=== PATIENT | female | born 1985 | race Caucasian/White ===

== ENCOUNTER 2023-07-17 16:37 | Inpatient (IN) ==
[2023-07-17 18:06] LABS: Appearance Urine Clear (Clear); Bacteria Urine Automated Negative (Negative); Bilirubin Urine Negative (Negative); Blood Urine Negative (Negative); Color Urine Yellow; Glucose Urine UA Negative (Negative); Ketones Urine Negative (Negative); Leukocyte Esterase Urine Negative (Negative); Nitrite Urine Negative (Negative); Protein Urine 2+ (Negative); RBC Urine Automated 0-4 /hpf (0-4); Specific Gravity Urine 1.014 (1.000-1.030); Urobilinogen Urine Negative (Negative); WBC Urine Automated 0 /hpf (0-5); pH Urine 6.5 (4.5-7.5)
[2023-07-17] MEDS: SODIUM CHLORIDE 0.9% 1,000 ML IV SCH (18:08)
[2023-07-17 18:28] LABS: Basophils # (auto) 0.06 K/uL (0.00-0.20); Eosinophils # (auto) 0.03 K/uL (0.00-0.50); Eosinophils % (auto) 0.5 %; Hematocrit (blood only) 38.5 % (37.0-47.0); Hemoglobin 13.4 g/dl (12.0-16.0); INR 0.9 (0.9-1.1); Immature Granulocytes # (auto) 0.01 K/uL (0.01-0.20); Immature Granulocytes % (auto) 0.2 %; Lymphocytes # (auto) 2.31 K/uL (1.20-3.40); Lymphocytes % (auto) 38.2 %; Mean Corpuscular Hemoglobin 31.6 pg (25.0-34.0); Mean Corpuscular Hgb Conc 34.8 g/dL (32.0-36.0); Mean Corpuscular Volume 90.8 fL (80.0-100.0); Mean Platelet Volume 9.6 fL (9.4-12.4); Monocytes # (auto) 0.63 K/uL (0.11-0.59); Monocytes % (auto) 10.4 %; Neutrophils # (auto) 3.01 K/uL (1.40-6.50); Neutrophils % (auto) 49.7 %; Platelet Count 411 K/uL (130-400); Prothrombin Time 10.4 Seconds (9.0-12.0); RDW Coefficient of Variation 15.5 % (11.5-14.5); RDW Standard Deviation 50.8 fL (36.4-46.3); Red Blood Count 4.24 M/uL (4.20-5.40); White Blood Count 6.05 K/ul (4.8-10.8)
[2023-07-17 18:30] LABS: Pregnancy Test, Serum Negative (Negative)
[2023-07-17] MEDS: MULTI-VITAMIN INFUSION 10 ML, THIAMINE HCL 100 MG, FOLIC ACID 1 MG in SODIUM CHLORIDE 0... IV ONE (18:37)
[2023-07-17 18:40] LABS: Albumin Globulin Ratio 1.3 (0.9-2); Albumin Level 4.5 gm/dl (3.4-5.0); BUN Creatinine Ratio 23.5 (10-20); Bilirubin,Total 0.9 mg/dl (0.2-1.0); Calcium 9.7 mg/dl (8.6-10.3); Creatinine Clr Calc Pharmacy 118.9 ml/min; Est GFR (African American) 126.8 ml/min; Est GFR (Non-African American) 109.4 ml/min; Globulin 3.4 gm/dl (2.5-4.0); Magnesium 1.7 mg/dl (1.7-2.4); Potassium 3.3 mmol/L (3.5-5.1); Total Protein 7.9 gm/dl (6.0-8.3); Troponin I High Sensitivity 5.3 pg/ml (0-14)
[2023-07-17 18:47] LABS: Amphetamines+Metham, Urine Neg (Neg); Barbiturates, Urine Neg (Neg); Benzodiazepine, Urine Neg (Neg); Cocaine, Urine Neg (Neg); MDMA (Ecstacy), Urine Neg (Neg); Marijuana, Urine Neg (Neg); Methadone, Urine Neg (Neg); Opiate, Urine Neg (Neg); Phencyclidine, Urine Neg (Neg)
[2023-07-17 18:51] LABS: Thyroid Stimulating Hormone 3.971 uIu/ml (0.300-4.500)
[2023-07-17] MEDS: diphenhydrAMINE 50 MG/ML VIAL IV STA (19:08)
[2023-07-17] MEDS: POTASSIUM CHLORIDE CRTAB 20 MEQ TABCR PO STA (19:08)
--- NOTE | 2023-07-17 19:50 | Emergency Department Note ---
Impression & Plan Alcoholic intoxication, Alcohol abuse, Hypokalemia ED Provider Note ED Provider Note NAME: MICK SINGH AGE:38 SEX: Female : 1985 ARRIVES VIA: Private vehicle INFORMANT: Patient ED PROVIDER(s): Carlotta Arrieta DO CHIEF COMPLAINT: Concern for alcohol withdrawal HPI: This is a 38-year-old female with a history of alcohol abuse who presents emergency department after being referred here by her PCP stating she needed inpatient treatment for alcohol withdrawal symptoms. Patient with a long history of alcohol abuse, has previously had outpatient rehab but was only able to stay sober for 10 days. This was in the fall 2022. Boyfriend at bedside states she drinks vodka and [employer] comfort daily. No recent trauma or injury while intoxicated. She states she did recently have a sinus issue and was started on doxycycline and believes she is having an allergic reaction as she did develop hives. She has been taking Benadryl intermittently for this as well. She denies any vomiting or diarrhea. Denies abdominal pain. She states when she begins to withdrawal she has increasing tremors followed by palpitations, sweating, and increased anxiety. No prior history of DTs or alcohol withdrawal related seizures. She states she has previously been given Ativan for withdrawal symptoms. Patient stated her last drink of alcohol was in the car ride over here. PAST MEDICAL HISTORY:See Below PAST SURGICAL HISTORY:See Below FAMILY HISTORY:See Below SOCIAL HISTORY:See Below HOME MEDICATIONS:See Below ALLERGIES:See Below VITALS:See Below PHYSICAL EXAMINATION: GENERAL: alert, well appearing, well nourished, no distress, non-toxic EYE EXAM: normal conjunctiva, PERRL and EOM's grossly intact OROPHARYNX: no exudate, no erythema, lips, buccal mucosa, and tongue normal and mucous membranes are moist NECK: supple, no nuchal rigidity, no adenopathy, non-tender LUNGS: Clear to auscultation. Normal chest wall mechanics, no w/r/r HEART: no murmurs, S1 normal and S2 normal ABDOMEN: abdomen soft, non-tender, normo-active bowel sounds, no masses, no rebound or guarding. BACK: Back is symmetrical on inspection and there is no deformity, no midline tenderness, no CVA tenderness. SKIN: no rashes, petechiae, orbruising UPPER EXTREMITIES: upper extremities are grossly normal. FROM, nml pulses b/l. LOWER EXTREMITIES: No pitting edema. FROM, nml pulses b/l. NEURO EXAM: Normal sensorium, cranial nerves II-XII grossly intact, normal speech, no facial droop,nogross weakness of arms, no gross weakness of legs. Gross sensation intact. No ataxia. Vital Signs: reviewed and remarkable Differential Diagnosis: alcohol intoxication, substance abuse, hypoglycemia, electrolyte abnormalities, dysrhythmia, dehydration, CHI, ICH, as well as others were entertained. MEDICAL DECISION MAKING: This is a 38 yo female who presents to the ER due to concern for etoh withdrawal. Patient had no obviuos symptoms of withdrawal on arrival. VS stable. Labs drawn and sent, IV established, EKG performed and interpreted at bedside, and patient placed on telemetry. She was given NSS and banana bag. She remianed stable while she sobered in a usual and expected fashion. No evidence of evolving withdrawal while she was monitored over several hours. Patient stated she was not interested in referrals to rehab but was most concerned for acute withdrawal symptoms. We discussed options for treatment and patient was in agreement with trial of librium to see if that would be able to control her symptoms that she could go home on a tapering dose and follow-up as an outpatient. Case signed out to Dr. Cuello to recheck following dose of librium to determine final disposition. ER Treatment Provided: See below Diagnostics Interpreted By Me: -ECG: Sinus tachycardia at 101, normal axis, normal intervals, no acute St/T wave changes -Cardiac Monitoring: An order was placed for continuous cardiac monitoring. The monitor shows a rate of 97 with normal sinus rhythm. -Laboratory studies: As stated above and show below. Triage Nursing Note Reviewed Prior/Outside Records Reviewed Past Med/Surg History Medical History Alcohol abuse Anxiety and depression Surgical History History of hysterectomy Family History Mother Alcohol abuse Anxiety Depression Father Alcohol abuse Anxiety Depression Brother Alcohol abuse Anxiety Depression Grandmother Breast cancer Grandfather Colorectal cancer Social History Smoking Status: Never smoker Tobacco Type: Cigarettes Hx Alcohol Use: Yes Alcohol type: beer and hard liquor Hx Substance Use: No Preferred Language: Tajik Communication Ability: Effective Mail Room Required: No Beliefs That Will Affect Care: None Current Living Situation: Significant Other Other Information That Helps Us Care for You: No Feels Safe at Home: Yes Safety Concerns: Feels Safe At This Time Allergies Allergies Allergy/AdvReac Type Severity Reaction Status Date / Time doxycycline Allergy Severe Anaphylaxis Verified 07/17/23 14:53 Home Meds Home Medications Medication Instructions Recorded Confirmed cholecalciferol (vitamin D3) 25 25 mcg PO DAILY 06/06/23 07/17/23 mcg (1,000 unit) capsule (Vitamin D3) doxepin 100 mg capsule 100 mg PO HS 07/18/23 07/18/23 doxepin 100 mg capsule mg 07/18/23 Previous Rx's Medication Instructions Recorded buspirone 10 mg tablet 10 mg PO TID 30 days #90 tabs 06/06/23 fluoxetine 20 mg capsule (Prozac) 20 mg PO TID 30 days #90 caps 06/06/23 hydroxyzine HCl 25 mg tablet 25 mg PO DAILY PRN anxiety #30 tabs 06/06/23 ondansetron 4 mg disintegrating 4 mg PO Q8H PRN nausea and 06/26/23 tablet vomiting #30 tabs albuterol sulfate 90 mcg/actuation 2 puff inhalation QID PRN 07/10/23 aerosol inhaler (ProAir HFA) shortness of breath #8.5 grams chlordiazepoxide HCl 25 mg capsule See Rx Instructions .Route 07/17/23 .COMPLEX PRN alcohol withdrawal #30 caps epinephrine 0.3 mg/0.3 mL 0.3 mg (0.3 mL) IM Q4H PRN 07/17/23 injection, auto-injector (EpiPen anaphylaxis #2 ea 2-[place]) Results & Data (ED) Vital Signs Vital Signs - 24 hr 07/17/23 18:30 07/17/23 20:13 07/17/23 22:00 Temperature 36.6 C 36.6 C Temperature Source Oral Oral Pulse Rate Pulse Rate [Apical] 102 H 98 H 90 Pulse Rate from SpO2 Sensor Respiratory Rate 19 16 20 Respiratory Effort / Characteristics Non-Labored Blood Pressure Blood Pressure [Right Arm] 118/81 125/93 142/92 H Blood Pressure Mean Blood Pressure Mean [Right Arm] 93 103 108 Pulse Oximetry 98 94 97 Oxygen Delivery Method Room Air Room Air Room Air 07/17/23 23:05 07/17/23 23:05 07/18/23 00:00 Temperature 36.9 C Temperature Source Oral Pulse Rate 92 H 84 Pulse Rate [Apical] Pulse Rate from SpO2 Sensor 94 H 87 Respiratory Rate 23 17 Respiratory Effort / Characteristics Blood Pressure 121/95 129/100 Blood Pressure [Right Arm] Blood Pressure Mean 103 109 Blood Pressure Mean [Right Arm] Pulse Oximetry 95 93 Oxygen Delivery Method Room Air Room Air Laboratory Data 07/18/23 02:45 07/18/23 02:45 Lab Results 07/17/23 07/17/23 07/17/23 Range/Units 16:51 16:58 20:22 WBC 6.05 (4.8-10.8) K/ul RBC 4.24 (4.20-5.40) M/uL Hgb 13.4 (12.0-16.0) g/dl Hct 38.5 (37.0-47.0) % MCV 90.8 (80.0-100.0) fL MCH 31.6 (25.0-34.0) pg MCHC 34.8 (32.0-36.0) g/dL RDW Std Deviation 50.8 H (36.4-46.3) fL RDW Coeff of Cuco 15.5 H (11.5-14.5) % Plt Count 411 H (130-400) K/uL MPV 9.6 (9.4-12.4) fL Immature Gran % (Auto) 0.2 % Neut % (Auto) 49.7 % Lymph % (Auto) 38.2 % Amelia % (Auto) 10.4 % Eos % (Auto) 0.5 % Baso % (Auto) 1.0 % Neut # (Auto) 3.01 (1.40-6.50) K/uL Lymph # (Auto) 2.31 (1.20-3.40) K/uL Amelia # (Auto) 0.63 H (0.11-0.59) K/uL Eos # (Auto) 0.03 (0.00-0.50) K/uL Baso # (Auto) 0.06 (0.00-0.20) K/uL Immature Gran # (Auto) 0.01 (0.01-0.20) K/uL PT 10.4 (9.0-12.0) Seconds INR 0.9 (0.9-1.1) Sodium 135 L (136-145) mmol/L Potassium 3.3 L (3.5-5.1) mmol/L Chloride 97 L (98-107) mmol/L Carbon Dioxide 20 L (21-32) mmol/L Anion Gap 18 H (3-11) BUN 16 (6-23) mg/dl Creatinine 0.68 (0.6-1.2) mg/dl Est Cr Clr Drug Dosing 118.9 ml/min Est GFR ( Amer) 126.8 ml/min Est GFR (Non-Af Amer) 109.4 ml/min BUN/Creatinine Ratio 23.5 H (10-20) Glucose 153 H (70-99(Fasting)) mg/dl Calcium 9.7 (8.6-10.3) mg/dl Magnesium 1.7 (1.7-2.4) mg/dl Total Bilirubin 0.9 (0.2-1.0) mg/dl AST 91 H (13-39) U/L ALT 60 H (7-52) U/L Alkaline Phosphatase 144 H (34-104) U/L Troponin I High Sens 5.3 (0-14) pg/ml Total Protein 7.9 (6.0-8.3) gm/dl Albumin 4.5 (3.4-5.0) gm/dl Globulin 3.4 (2.5-4.0) gm/dl Albumin/Globulin Ratio 1.3 (0.9-2) Lipase 45 (11-82) U/L TSH 3.971 (0.300-4.500) uIu/ml HCG, Qual Negative (Negative) Urine Color Yellow Urine Appearance Clear (Clear) Urine pH 6.5 (4.5-7.5) Ur Specific Frederic 1.014 (1.000-1.030) Urine Protein 2+ H (Negative) Urine Glucose (UA) Negative (Negative) Urine Ketones Negative (Negative) Urine Blood Negative (Negative) Urine Nitrite Negative (Negative) Urine Bilirubin Negative (Negative) Urine Urobilinogen Negative (Negative) Ur Leukocyte Esterase Negative (Negative) Urine WBC (Auto) 0 (0-5) /hpf Urine RBC (Auto) 0-4 (0-4) /hpf U Hyaline Cast (Auto) 1-5 (0-5) /lpf U Epithel Cells (Auto) 10-20 H (0-5) /lpf Urine Bacteria (Auto) Negative (Negative) Urine Opiates Screen Neg (Neg) Ur Methadone, Qual Neg (Neg) Urine Barbiturates Neg (Neg) Ur Phencyclidine (PCP) Neg (Neg) U Amphetamin/Meth Scrn Neg (Neg) MDMA (Ecstasy) Screen Neg (Neg) U Benzodiazepines Scrn Neg (Neg) Ur Cocaine Metabolite Neg (Neg) U Marijuana (THC) Screen Neg (Neg) Ethyl Alcohol mg/dL 218.0 H 97.0 H (<10.0) mg/dl Administered Medications Buspirone HCl (Buspirone 5 Mg Tab) 10 mg PO TID [facility] Stop: 08/17/23 08:59 Last Admin: 07/18/23 13:14 Dose: 10 mg Documented By: Admin: 07/18/23 07:23 Dose: 10 mg Documented By: RUSSELL Chlordiazepoxide HCl (Chlordiazepoxide Hcl 25 Mg Cap) 50 mg PO Q6H [facility] Stop: 07/18/23 19:22 Last Admin: 07/18/23 13:15 Dose: 50 mg Documented By: Admin: 07/18/23 07:22 Dose: 50 mg Documented By: Admin: 07/18/23 01:53 Dose: 50 mg Documented By: CAIO Doxepin HCl (Doxepin Hcl 50 Mg Capsule) 100 mg PO HS [facility] Stop: 08/17/23 02:59 Last Admin: 07/18/23 04:05 Dose: Not Given Documented By: CAIO Folic Acid (Folic Acid 1 Mg Tab) 1 mg PO QAM [facility] Stop: 08/17/23 08:59 Last Admin: 07/18/23 07:24 Dose: 1 mg Documented By: RUSSELL Lorazepam 1 mg/ Syringe 1 mls @ 2 mls/min IV UD PRN; Protocol PRN Reason: EtOH Withdrawal AWSS Score 6,7 Stop: 08/17/23 01:20 Last Admin: 07/18/23 11:54 Dose: 2 mls/min Documented By: Admin: 07/18/23 05:19 Dose: 2 mls/min Documented By: CAIO Lorazepam 2 mg/ Syringe 2 mls @ 2 mls/min IV UD PRN; Protocol PRN Reason: EtOH Withdrawal AWSS Score 8,9 Stop: 08/17/23 01:20 Last Admin: 07/18/23 15:20 Dose: 2 mls/min Documented By: MARELY Thiamine HCl 200 mg/ Sodium (Chloride) 52 mls @ 210 mls/hr IV TID [facility] Stop: 08/17/23 13:59 Last Infusion: 07/18/23 14:55 Dose: Infused Documented By: Admin: 07/18/23 14:24 Dose: 210 mls/hr Documented By: MARELY Nicotine (Nicotine 14 Mg/24 Hr Patch) 14 mg TD QAM [facility] Stop: 08/17/23 15:29 Last Admin: 07/18/23 16:37 Dose: 14 mg Documented By: MARELY Ondansetron HCl (Ondansetron Inj 2 Mg/Ml 2 Ml Vial) 4 mg IV Q6H PRN PRN Reason: Nausea And Vomiting Stop: 08/17/23 00:42 Last Admin: 07/18/23 00:58 Dose: 4 mg Documented By: NIESHA Pantoprazole Sodium (Pantoprazole 40 Mg Tab) 40 mg PO BID [facility] Stop: 08/17/23 12:59 Last Admin: 07/18/23 13:15 Dose: 40 mg Documented By: MARELY Discontinued Medications Acetaminophen (Acetaminophen 500 Mg Tab) 1,000 mg PO NOW STA Stop: 07/18/23 00:49 Last Admin: 07/18/23 00:54 Dose: 1,000 mg Documented By: NIESHA Chlordiazepoxide HCl (Chlordiazepoxide Hcl 25 Mg Cap) 50 mg PO NOW ONE Stop: 07/17/23 22:15 Last Admin: 07/17/23 22:19 Dose: 50 mg Documented By: JONATHAN Diazepam (Diazepam 5 Mg/Ml 10ml Vial) 5 mg IV Q1H PRN PRN Reason: Alcohol Withdrawal Stop: 08/16/23 17:36 Last Admin: 07/18/23 00:36 Dose: 5 mg Documented By: NIESHA Diazepam (Diazepam 2 Mg Tablet) 2 mg PO NOW ONE Stop: 07/18/23 08:04 Last Admin: 07/18/23 08:51 Dose: 2 mg Documented By: DINO Diazepam (Diazepam 2 Mg Tablet) 2 mg PO NOW ONE Stop: 07/18/23 13:00 Last Admin: 07/18/23 13:15 Dose: 2 mg Documented By: MARELY Diphenhydramine HCl (Diphenhydramine 50 Mg/Ml Vial) 25 mg IV NOW STA Stop: 07/17/23 18:44 Last Admin: 07/17/23 19:08 Dose: 25 mg Documented By: WU Fluoxetine HCl (Fluoxetine Hcl 20 Mg Cap) 20 mg PO TID [facility] Stop: 08/17/23 08:59 Last Admin: 07/18/23 13:15 Dose: 20 mg Documented By: Admin: 07/18/23 07:23 Dose: 20 mg Documented By: RUSSELL Sodium Chloride (Nss) 1,000 mls @ 250 mls/hr IV .Q4H [facility] Stop: 08/16/23 17:44 Last Infusion: 07/18/23 02:17 Dose: Infused Documented By: Admin: 07/17/23 21:51 Dose: 250 mls/hr Documented By: Infusion: 07/17/23 21:51 Dose: Infused Documented By: Admin: 07/17/23 18:08 Dose: 250 mls/hr Documented By: WU Multivitamins 10 ml/ Thiamine HCl 100 mg/ Folic Acid 1 mg/Sodium Chloride 1,011.2 mls @ 250 mls/hr IV .Q4H3M ONE Stop: 07/17/23 21:39 Last Infusion: 07/17/23 22:46 Dose: Infused Documented By: Admin: 07/17/23 18:37 Dose: 250 mls/hr Documented By: WU Lorazepam 3 mg/ Syringe 3 mls @ 2 mls/min IV ONCE PRN; Protocol PRN Reason: EtOH Withdrawal AWSS Score 10+ Last Admin: 07/18/23 07:35 Dose: 2 mls/min Documented By: RUSSELL Magnesium Sulfate/Dextrose (Magnesium Sulfate / D5w) 1 gm in 100 mls @ 50 mls/hr IV ONE ONE Stop: 07/18/23 10:06 Last Infusion: 07/18/23 11:15 Dose: Infused Documented By: Admin: 07/18/23 08:51 Dose: 50 mls/hr Documented By: DINO Magnesium Sulfate/Dextrose (Magnesium Sulfate / D5w) 1 gm in 100 mls @ 50 mls/hr IV Q2H [facility] Stop: 07/18/23 15:14 Last Infusion: 07/18/23 15:55 Dose: Infused Documented By: Admin: 07/18/23 13:47 Dose: 50 mls/hr Documented By: Infusion: 07/18/23 13:47 Dose: Infused Documented By: Admin: 07/18/23 11:46 Dose: 50 mls/hr Documented By: MARELY Ibuprofen (Ibuprofen 200 Mg Tab) 400 mg PO NOW STA Stop: 07/17/23 22:37 Last Admin: 07/17/23 22:39 Dose: 400 mg Documented By: JONATHAN Ibuprofen (Ibuprofen 200 Mg Tab) 400 mg PO NOW STA Stop: 07/18/23 08:04 Last Admin: 07/18/23 08:50 Dose: 400 mg Documented By: DINO Lorazepam (Lorazepam 1 Mg/1 Ml Syr Ed Inj Use) Confirm Administered Dose 3 mg .ROUTE .STK-MED ONE Stop: 07/18/23 07:35 Last Admin: 07/18/23 09:31 Dose: Not Given Documented By: RUSSELL Lorazepam (Lorazepam 1 Mg/1 Ml Syr Ed Inj Use) Confirm Administered Dose 1 mg .ROUTE .STK-MED ONE Stop: 07/18/23 11:54 Last Admin: 07/18/23 11:54 Dose: 1 mg Documented By: MARELY Lorazepam (Lorazepam 1 Mg/1 Ml Syr Ed Inj Use) Confirm Administered Dose 2 mg .ROUTE .STK-MED ONE Stop: 07/18/23 15:19 Last Admin: 07/18/23 15:20 Dose: 2 mg Documented By: MARELY Potassium Chloride (Potassium Chloride Crtab 20 Meq Tabcr) 40 meq PO NOW STA Stop: 07/17/23 18:47 Last Admin: 07/17/23 19:08 Dose: 40 meq Documented By: WU Thiamine HCl (Thiamine Hcl 100 Mg Tab) 100 mg PO QAM [facility] Stop: 08/17/23 08:59 Last Admin: 07/18/23 07:24 Dose: 100 mg Documented By: RUSSELL Discharge Plan Visit Data Chief Complaint: Detox Request Stated Complaint: DETOX/ALCOHOL ED Provider: Judson Cuello Discharge Problem: Alcoholic intoxication, Alcohol abuse, Hypokalemia Patient Disposition: Admitted As Inpatient Condition: Good Discharge Instructions Interventions: ED Discharge Assessment Last Done: 07/18/23 01:21
[2023-07-17] MEDS: chlordiazePOXIDE HCl 25 MG CAP PO ONE (22:19)
[2023-07-17] MEDS: IBUPROFEN 200 MG TAB PO STA (22:39)
--- NOTE | 2023-07-17 23:59 | Emergency Department Note ---
ED Visit Note Patient was signed out to me at change of shift by Dr. Arrieta, pending reevaluation for final disposition. Repeat alcohol level is down trended to 97.0, on my reassessment the patient's vital signs are stable however she states she feels very "sweaty" and feels very anxious and does not feel comfortable with discharge home. Patient was given Valium as well as Librium here in the ED. She does not feel comfortable with discharge home for Librium taper as she states that her symptoms "always get worse in the morning". Given this, I did discuss the patient's presentation with the on-call hospitalist, Dr. Winter, he did accept the patient for inpatient care for alcohol withdrawal symptoms. Patient was in agreement to this plan and she was placed for medical admission in stable condition. Judson Cuello DO .
--- NOTE | 2023-07-18 00:12 | History & Physical Report ---
Date of Service July 18, 2023 Assessment & Plan (1) Alcohol abuse: Plan: 38yo female with history of EtOH abuse with prior withdrawal symptoms, possible withdrawal seizure in the past presenting with concern for EtOH withdrawal. Patient reports drinking 1-2L of liquor daily. Last drink was prior to ER arrival 07/17/23 afternoon. Patient has been given a banana bag and potassium has been repleted -Admit to PCU -Monitor for signs of withdrawal -Ativan PRN per AWSS -Librium taper -Thiamine 100mg po daily and Folic Acid 1mg po daily -Psychiatry consultation appreciated. Patient is interested in Vivitrol injection to help her quit drinking. -Repeat CBC, BMP and LFTs in AM (2) Anxiety and depression: Plan: Chronic -Continue Buspar 10mg po TID -Continue Fluoxetine 20mg po TID -Will hold PRN Hydroxyzine F/E/N - Saline lock. Repeat chemistry in AM. Regular diet/Safe tray as tolerated Ppx - Low risk for DVT Code - Full per patient discussion at time of admission Dispo - Admit to PCU History of Present Illness Chief Complaint: Alcohol withdrawal Primary Care Provider: Dalila Angeles MD Catherine Hinkle is a 38yo female with history of EtOH abuse and anxiety presenting from home with concern for EtOH withdrawal. Patient was seen by her PCP earlier today with concern for an allergic reaction - urticarial rash and angioedema which improved with PO Benadryl. She voiced concern about EtOH withdrawal and would like to be admitted for medical detox. Patient drinks 1-2 L of liquor daily - Vodka and Southern Comfort. She was experiencing some mild withdrawal symptoms at her PCP visit and drank some EtOH on the way to the ER. Patient was in rehab in the past in February 2023. She had some withdrawal symptoms and possibly a seizure. Presently she feels sweaty and chilled. Otherwise, no complaints. In the ER she is afebrile, HD stable, NAD ER Course: Ibuprofen 400mg Librium 50mg NSS x 2L KCl 40mEq Benadryl 25mg IV Banana bag Allergies Allergy/AdvReac Type Severity Reaction Status Date / Time doxycycline Allergy Severe Anaphylaxis Verified 07/17/23 14:53 Home Medications Medication Instructions Recorded Confirmed Type buspirone 10 mg tablet 10 mg PO TID 30 days #90 tabs 06/06/23 07/17/23 Rx cholecalciferol (vitamin D3) 25 25 mcg PO DAILY 06/06/23 07/17/23 History mcg (1,000 unit) capsule (Vitamin D3) fluoxetine 20 mg capsule (Prozac) 20 mg PO TID 30 days #90 caps 06/06/23 07/17/23 Rx hydroxyzine HCl 25 mg tablet 25 mg PO DAILY PRN anxiety #30 tabs 06/06/2308/05 Rx ondansetron 4 mg disintegrating 4 mg PO Q8H PRN nausea and 06/26/23 07/17/23 Rx tablet vomiting #30 tabs albuterol sulfate 90 mcg/actuation 2 puff inhalation QID PRN 07/10/23 07/17/23 Rx aerosol inhaler (ProAir HFA) shortness of breath #8.5 grams chlordiazepoxide HCl 25 mg capsule See Rx Instructions .Route 07/17/23 Rx .COMPLEX PRN alcohol withdrawal #30 caps epinephrine 0.3 mg/0.3 mL 0.3 mg (0.3 mL) IM Q4H PRN 07/17/23 07/17/23 Rx injection, auto-injector (EpiPen anaphylaxis #2 ea 2-[place]) Past Med/Surg History Medical History (Updated 07/18/23 @ 00:24 by Ssisy Winter DO) Alcohol abuse Anxiety and depression Surgical History (Updated 07/18/23 @ 00:24 by Sissy Winter DO) History of hysterectomy Family History Mother Alcohol abuse Anxiety Depression Father Alcohol abuse Anxiety Depression Brother Alcohol abuse Anxiety Depression Grandmother Breast cancer Grandfather Colorectal cancer Social History Smoking Status: Unknown if ever smoked Tobacco Type: Cigarettes Preferred Language: German Feels Safe at Home: Yes Review of Systems Review of Systems: All systems reviewed & are unremarkable except as noted in HPI & below Physical Exam Physical Exam: General: patient resting comfortably, NAD, non-toxic in appearance, AA&O x 4 Skin: warm, dry, intact, no rashes or lesions HEENT: NC/AT, PERRL, EOMI, anicteric sclera, conjunctiva without injection, external ear normal to inspection and nontender, nares patent, moist mucus membranes, dentition intact, no oropharyngeal lesions, neck supple, trachea midline, no LAD, no thyromegaly, no JVD Heart: +S1/S2, regular, no m/r/g Lungs: equal air entry bilaterally, no rales/rhonchi/wheezes Abd: +BS, soft, NT/ND, no masses/organomegaly/ascites Ext: warm, 2+ pulses in UE/LE bilaterally, no clubbing/cyanosis or edema Neuro: nonfocal, patient AA&O x 4, speech intact, no facial droop, moving all extremities on command with equal strength 5/5 Results & Data Results & Data Vital Signs (Past 12 Hours) Vital Signs Temp Pulse Pulse Resp BP BP Pulse Ox 07/17/23 23:05 92 H 23 121/95 95 07/17/23 23:05 36.9 C 07/17/23 22:00 36.6 C 90 20 142/92 H 97 07/17/23 20:13 36.6 C 98 H 16 125/93 94 07/17/23 18:30 102 H 19 118/81 98 07/17/23 17:14 104 H 07/17/23 17:00 106 H 19 154/119 H 98 07/17/23 16:39 36.8 C 117 H 19 134/98 93 O2 Del Method 07/17/23 23:05 Room Air 07/17/23 23:05 07/17/23 22:00 Room Air 07/17/23 20:13 Room Air 07/17/23 18:30 Room Air 07/17/23 17:14 07/17/23 17:00 Room Air 07/17/23 16:39 Room Air Laboratory Results Laboratory Results WBC 6.05 K/ul (4.8-10.8) 07/17/23 16:58 RBC 4.24 M/uL (4.20-5.40) 07/17/23 16:58 Hgb 13.4 g/dl (12.0-16.0) 07/17/23 16:58 Hct 38.5 % (37.0-47.0) 07/17/23 16:58 MCV 90.8 fL (80.0-100.0) 07/17/23 16:58 MCH 31.6 pg (25.0-34.0) 07/17/23 16:58 MCHC 34.8 g/dL (32.0-36.0) 07/17/23 16:58 RDW Std Deviation 50.8 fL (36.4-46.3) H 07/17/23 16:58 RDW Coeff of Cuco 15.5 % (11.5-14.5) H 07/17/23 16:58 Plt Count 411 K/uL (130-400) H 07/17/23 16:58 MPV 9.6 fL (9.4-12.4) 07/17/23 16:58 Immature Gran % (Auto) 0.2 % 07/17/23 16:58 Neut % (Auto) 49.7 % 07/17/23 16:58 Lymph % (Auto) 38.2 % 07/17/23 16:58 [place] % (Auto) 10.4 % 07/17/23 16:58 Eos % (Auto) 0.5 % 07/17/23 16:58 Baso % (Auto) 1.0 % 07/17/23 16:58 Neut # (Auto) 3.01 K/uL (1.40-6.50) 07/17/23 16:58 Lymph # (Auto) 2.31 K/uL (1.20-3.40) 07/17/23 16:58 [place] # (Auto) 0.63 K/uL (0.11-0.59) H 07/17/23 16:58 Eos # (Auto) 0.03 K/uL (0.00-0.50) 07/17/23 16:58 Baso # (Auto) 0.06 K/uL (0.00-0.20) 07/17/23 16:58 Immature Gran # (Auto) 0.01 K/uL (0.01-0.20) 07/17/23 16:58 PT 10.4 Seconds (9.0-12.0) 07/17/23 16:58 INR 0.9 (0.9-1.1) 07/17/23 16:58 Sodium 135 mmol/L (136-145) L 07/17/23 16:58 Potassium 3.3 mmol/L (3.5-5.1) L 07/17/23 16:58 Chloride 97 mmol/L (98-107) L 07/17/23 16:58 Carbon Dioxide 20 mmol/L (21-32) L 07/17/23 16:58 Anion Gap 18 (3-11) H 07/17/23 16:58 BUN 16 mg/dl (6-23) 07/17/23 16:58 Creatinine 0.68 mg/dl (0.6-1.2) 07/17/23 16:58 Est Cr Clr Drug Dosing 118.9 ml/min 07/17/23 16:58 Est GFR ( Amer) 126.8 ml/min 07/17/23 16:58 Est GFR (Non-Af Amer) 109.4 ml/min 07/17/23 16:58 BUN/Creatinine Ratio 23.5 (10-20) H 07/17/23 16:58 Glucose 153 mg/dl (70-99(Fasting)) H 07/17/23 16:58 Calcium 9.7 mg/dl (8.6-10.3) 07/17/23 16:58 Magnesium 1.7 mg/dl (1.7-2.4) 07/17/23 16:58 Total Bilirubin 0.9 mg/dl (0.2-1.0) 07/17/23 16:58 AST 91 U/L (13-39) H 07/17/23 16:58 ALT 60 U/L (7-52) H 07/17/23 16:58 Alkaline Phosphatase 144 U/L (34-104) H 07/17/23 16:58 Troponin I High Sens 5.3 pg/ml (0-14) 07/17/23 16:58 Total Protein 7.9 gm/dl (6.0-8.3) 07/17/23 16:58 Albumin 4.5 gm/dl (3.4-5.0) 07/17/23 16:58 Globulin 3.4 gm/dl (2.5-4.0) 07/17/23 16:58 Albumin/Globulin Ratio 1.3 (0.9-2) 07/17/23 16:58 Lipase 45 U/L (11-82) 07/17/23 16:58 TSH 3.971 uIu/ml (0.300-4.500) 07/17/23 16:58 HCG, Qual Negative (Negative) 07/17/23 16:58 Urine Color Yellow 07/17/23 16:51 Urine Appearance Clear (Clear) 07/17/23 16:51 Urine pH 6.5 (4.5-7.5) 07/17/23 16:51 Ur Specific [place] 1.014 (1.000-1.030) 07/17/23 16:51 Urine Protein 2+ (Negative) H 07/17/23 16:51 Urine Glucose (UA) Negative (Negative) 07/17/23 16:51 Urine Ketones Negative (Negative) 07/17/23 16:51 Urine Blood Negative (Negative) 07/17/23 16:51 Urine Nitrite Negative (Negative) 07/17/23 16:51 Urine Bilirubin Negative (Negative) 07/17/23 16:51 Urine Urobilinogen Negative (Negative) 07/17/23 16:51 Ur Leukocyte Esterase Negative (Negative) 07/17/23 16:51 Urine WBC (Auto) 0 /hpf (0-5) 07/17/23 16:51 Urine RBC (Auto) 0-4 /hpf (0-4) 07/17/23 16:51 U Hyaline Cast (Auto) 1-5 /lpf (0-5) 07/17/23 16:51 U Epithel Cells (Auto) 10-20 /lpf (0-5) H 07/17/23 16:51 Urine Bacteria (Auto) Negative (Negative) 07/17/23 16:51 Urine Opiates Screen Neg (Neg) 07/17/23 16:51 Ur Methadone, Qual Neg (Neg) 07/17/23 16:51 Urine Barbiturates Neg (Neg) 07/17/23 16:51 Ur Phencyclidine (PCP) Neg (Neg) 07/17/23 16:51 U Amphetamin/Meth Scrn Neg (Neg) 07/17/23 16:51 MDMA (Ecstasy) Screen Neg (Neg) 07/17/23 16:51 U Benzodiazepines Scrn Neg (Neg) 07/17/23 16:51 Ur Cocaine Metabolite Neg (Neg) 07/17/23 16:51 U Marijuana (THC) Screen Neg (Neg) 07/17/23 16:51 Ethyl Alcohol mg/dL 97.0 mg/dl (<10.0) H 07/17/23 20:22 PG Care Time/CCT Total # of Minutes Spent Total Time Spent with Patient: Total time spent is greater than 50% in coordination of care (as documented) at patient's floor/unit and/or counseling patient: Coding Level of Care Code 92017 INT INP/OBS CARE 3/75MIN Diagnoses Alcohol abuse F10.10 Anxiety and depression F41.9; F32.A
[2023-07-18] MEDS: diazePAM 5 MG/ML 10ML VIAL IV PRN (00:36)
[2023-07-18] MEDS: ACETAMINOPHEN 500 MG TAB PO STA (00:54)
[2023-07-18] MEDS: ONDANSETRON INJ 2 MG/ML 2 ML VIAL IV PRN (00:58)
[2023-07-18] MEDS ORDERED: Ativan IV Alcohol Withdrawal--Active Protocol IV PRN (01:21)
[2023-07-18] MEDS ORDERED: chlordiazePOXIDE ALCOHOL WITHDRAWL 50MG PO STA (01:21)
[2023-07-18] MEDS ORDERED: ONDANSETRON INJ 2 MG/ML 2 ML VIAL IV PRN (01:21)
[2023-07-18] MEDS ORDERED: hydrOXYzine HCl 25 MG TAB PO PRN (01:53)
[2023-07-18] MEDS: chlordiazePOXIDE HCl 25 MG CAP PO SCH (01:53)
[2023-07-18 03:39] LABS: Albumin Globulin Ratio 1.3 (0.9-2); Albumin Level 3.5 gm/dl (3.4-5.0); BUN Creatinine Ratio 18.2 (10-20); Bilirubin Direct 0.2 mg/dl (0-0.2); Calcium 7.7 mg/dl (8.6-10.3); Creatinine Clr Calc Pharmacy 122.5 ml/min; Est GFR (African American) 128.1 ml/min; Est GFR (Non-African American) 110.5 ml/min; Globulin 2.6 gm/dl (2.5-4.0); Potassium 3.8 mmol/L (3.5-5.1); Total Protein 6.1 gm/dl (6.0-8.3)
[2023-07-18] MEDS: DOXEPIN HCL 50 MG CAPSULE PO SCH (04:05)
[2023-07-18 04:14] LABS: Basophils # (auto) 0.07 K/uL (0.00-0.20); Basophils % (auto) 1.5 %; Eosinophils # (auto) 0.05 K/uL (0.00-0.50); Eosinophils % (auto) 1.1 %; Hematocrit (blood only) 33.5 % (37.0-47.0); Immature Granulocytes # (auto) 0.01 K/uL (0.01-0.20); Immature Granulocytes % (auto) 0.2 %; Lymphocytes # (auto) 2.34 K/uL (1.20-3.40); Lymphocytes % (auto) 50.6 %; Mean Corpuscular Hemoglobin 31.7 pg (25.0-34.0); Mean Corpuscular Hgb Conc 32.8 g/dL (32.0-36.0); Mean Platelet Volume 9.4 fL (9.4-12.4); Monocytes # (auto) 0.52 K/uL (0.11-0.59); Monocytes % (auto) 11.3 %; Neutrophils # (auto) 1.63 K/uL (1.40-6.50); Neutrophils % (auto) 35.3 %; Platelet Count 263 K/uL (130-400); RDW Coefficient of Variation 15.6 % (11.5-14.5); RDW Standard Deviation 54.7 fL (36.4-46.3); Red Blood Count 3.47 M/uL (4.20-5.40); White Blood Count 4.62 K/ul (4.8-10.8)
[2023-07-18] MEDS: LORazepam 1 MG in SYRINGE 0.5 ML IV PRN (05:19)
[2023-07-18] MEDS: FLUoxetine HCL 20 MG CAP PO SCH (07:23)
[2023-07-18] MEDS: busPIRone 5 MG TAB PO SCH (07:23)
[2023-07-18] MEDS: FOLIC ACID 1 MG TAB PO SCH (07:24)
[2023-07-18] MEDS: THIAMINE HCL 100 MG TAB PO SCH (07:24)
[2023-07-18] MEDS: LORazepam 3 MG in SYRINGE 1.5 ML IV PRN (07:35)
[2023-07-18] MEDS: IBUPROFEN 200 MG TAB PO STA (08:50)
[2023-07-18] MEDS: MAGNESIUM SULFATE / D5W 1 GM/100 ML BAG IV ONE (08:51)
[2023-07-18] MEDS: diazePAM 2 MG TABLET PO ONE ×2 (08:51→13:15)
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
[2023-07-18 09:16] LABS: Iron 326 mcg/dl (35-150); Magnesium 1.5 mg/dl (1.7-2.4); Unsaturated Iron Binding Cap < 55 mcg/dl (155-355)
[2023-07-18] MEDS: LORazepam 1 MG/1 ML SYR ED Inj Use ONE ×3 (09:31→15:20)
[2023-07-18] MEDS: MAGNESIUM SULFATE / D5W 1 GM/100 ML BAG IV SCH (11:46)
[2023-07-18] MEDS: PANTOprazole 40 MG TAB PO SCH (13:15)
[2023-07-18] MEDS: THIAMINE HCL 200 MG in SODIUM CHLORIDE 0.9% 50 ML IV SCH (14:24)
[2023-07-18] MEDS ORDERED: Ativan PO Alcohol Withdrawal--Active Protocol PO PRN (15:09)
[2023-07-18] MEDS: LORazepam 2 MG in SYRINGE 1 ML IV PRN (15:20)
[2023-07-18] MEDS: NICOTINE 14 MG/24 HR PATCH TD SCH (16:37)
--- NOTE | 2023-07-18 16:44 | Psychiatric Consultation ---
Date of Consultation July 18, 2023 Impression / Recommendations Impression Diagnostically consistent with alcohol use disorder as well as unspecified depression and anxiety likely a combination of substance-induced as well as YUSEF. Acute risk of self-harm is low given denial of SI and future-oriented. Chronic risk of self-harm and harm to others is slightly increased due to substance use with substance use treatment being the most significant modifiable risk factor to reduce acute and chronic risk. Recommendation is for dual diagnosis or residential substance use treatment. They are not interested in residential treatment at this time but are agreeable to outpatient services to help with substance use and medication assisted treatment. Liver enzymes reviewed and AST still slightly elevated, would wait for this to come down a bit more before restarting po naltrexone. Overall, I spent a total of 60 minutes with this case including review of chart records, review of labwork, direct evaluation of the patient at bedside, counseling the patient, discussion of the patient with the hospitalist provider, discussion with the psychiatric liason during clinical rounds and documentation in the electronic health record. (1) Alcohol use disorder, severe, dependence: (2) Anxiety and depression: (3) Alcohol-induced anxiety disorder: Plan -Psychiatric liason will provide resources on local mental health services and substance use services and attempt to set them up with outpatient services- discussed [facility] and local clinics that offer Vivitrol injections should she tolerate po naltrexone and LFTs improve -Patient is not an imminent danger to self or others and does not meet criteria for involuntary psychiatric commitment -Continue AWSS as well as thiamine and folic acid -Consider starting naltrexone 50mg qd for alcohol use disorder once AST decreases to <78; option in future to transition to Vivitrol -Adjusted fluoxetine dosing to match her report of home dosing of 60mg daily rather than 20mg TID. Should be monitored on an ongoing basis by outpatient psychiatric provider at [facility] given that she is also prescribed doxepin which places her at increased risk for serotonin syndrome. Would advise attempting to discontinue doxepin in the future -Gabpentin 100mg TID prn could be trialed after she is outside acute withdrawal period as off-label for alcohol use and anxiety and titrated in outpatient set ting as needed Psych History Identifying Data 38 yo woman with history of unspecified anxiety, depression, alcohol use disor ansley admitted medically for complicated alcohol withdrawal. Psychiatry consulted for recommendations regarding her alcohol use/dual diagnosis treatment options. Chief Complaint "Yeah I think I need something I don't have the option of not taking". History of Present Illness Catherine had expressed a strong preference for Vivitrol injections as a potential intervention for her significant alcohol use. On meeting with her she describes her current/most recent alcohol use as a daily consumption of at least one bottle of hard liquor. Despite a history of treatment for alcohol use, including a one-month rehabilitation stay at [facility] in February, she has faced challenges in maintaining sobriety. She attributes relapses to an initial belief in her ability to moderate alcohol intake, which invariably leads to a "big spiral." She achieved her longest period of sobriety, lasting a few months p ost-rehab, by focusing on other activities and having a temporary aversion to alcohol "I hated alcohol". However, after relapsing, her alcohol use has increased and recently resulted in adverse outcomes, such as a DUI in May.She feels anxiety and depression certainly contribute to her reasons for using alcohol. Currently employed as a vehicle maintenance supervisor at [employer], the patient resides with her boyfr iend and remains in contact with her two children, ages 14 and 21. She reports having limited support, with her boyfriend and children being the primary sources of support in her life. She has a history of depression and anxiety, which she believes plays a role in her alcohol use. She is presently on psychiatric medications, including Prozac, taken as 60mg in the morning, as well as BuSpar, Doxepin and Hydroxyzine. Notes she is not always consistent with her medications but always takes her Prozac. The patient's family history includes substance use disorders in both parents. She recently saw a provider at [facility] 2 weeks ago for her first appointment and has monthly counseling sessions with Susan Cantu. She has expressed a desire to increase the frequency of counseling sessions to weekly and recognizes that Alcoholics Anonymous (AA) could be helpful. The patient has previously been prescribed naltrexone, which was escalated to a daily dose of 50 milligrams but did not prevent her from drinking. Due to the limited success with naltrexone, the patient is now seeking a more enforceable treatment option, such as Vivitrol injections. She has no history of suicide attempts or psychiatric h ospitalizations. Allergies Allergy/AdvReac Type Severity Reaction Status Date / Time doxycycline Allergy Severe Anaphylaxis Verified 07/17/23 14:53 Home Medications Medication Instructions Recorded Confirmed Type buspirone 10 mg tablet 10 mg PO TID 30 days #90 tabs 06/06/23 07/17/23 Rx cholecalciferol (vitamin D3) 25 25 mcg PO DAILY 06/06/23 07/17/23 History mcg (1,000 unit) capsule (Vitamin D3) fluoxetine 20 mg capsule (Prozac) 20 mg PO TID 30 days #90 caps 06/06/23 07/17/23 Rx hydroxyzine HCl 25 mg tablet 25 mg PO DAILY PRN anxiety #30 tabs 06/06/23 07/17/23 Rx ondansetron 4 mg disintegrating 4 mg PO Q8H PRN nausea and 06/26/23 07/17/23 Rx tablet vomiting #30 tabs albuterol sulfate 90 mcg/actuation 2 puff inhalation QID PRN 07/10/23 07/17/23 Rx aerosol inhaler (ProAir HFA) shortness of breath #8.5 grams chlordiazepoxide HCl 25 mg capsule See Rx Instructions .Route 07/17/23 Rx .COMPLEX PRN alcohol withdrawal #30 caps epinephrine 0.3 mg/0.3 mL 0.3 mg (0.3 mL) IM Q4H PRN 07/17/23 07/17/23 Rx injection, auto-injector (EpiPen anaphylaxis #2 ea 2-[place]) doxepin 100 mg capsule 100 mg PO HS 07/18/23 07/18/23 History doxepin 100 mg capsule mg 07/18/23 History Patient History Medical History Alcohol abuse Anxiety and depression Surgical History History of hysterectomy Family History Mother Alcohol abuse Anxiety Depression Father Alcohol abuse Anxiety Depression Brother Alcohol abuse Anxiety Depression Grandmother Breast cancer Grandfather Colorectal cancer Social History Smoking Status: Never smoker Tobacco Type: Cigarettes Hx Alcohol Use: Yes Alcohol type: beer and hard liquor Hx Substance Use: No Preferred Language: Northern Irish Communication Ability: Effective Hadoop Engineer Required: No Beliefs That Will Affect Care: None Current Living Situation: Significant Other Other Information That Helps Us Care for You: No Feels Safe at Home: Yes Safety Concerns: Feels Safe At This Time Physical Exam Vital Signs (Past 24 Hours): Last Vital Signs Temp 36.7 C 07/18/23 07:28 Pulse 81 07/18/23 16:00 Resp 24 07/18/23 16:00 BP 117/82 07/18/23 16:00 Pulse Ox 93 07/18/23 16:00 O2 Del Method Room Air 07/18/23 16:00 Results & Data (PSY) Medications Administered Buspirone HCl (Buspirone 5 Mg Tab) 10 mg PO TID [facility] Stop: 08/17/23 08:59 Last Admin: 07/18/23 13:14 Dose: 10 mg Documented By: Admin: 07/18/23 07:23 Dose: 10 mg Documented By: RUSSELL Chlordiazepoxide HCl (Chlordiazepoxide Hcl 25 Mg Cap) 50 mg PO Q6H [facility] Stop: 07/18/23 19:22 Last Admin: 07/18/23 13:15 Dose: 50 mg Documented By: Admin: 07/18/23 07:22 Dose: 50 mg Documented By: Admin: 07/18/23 01:53 Dose: 50 mg Documented By: CAIO Doxepin HCl (Doxepin Hcl 50 Mg Capsule) 100 mg PO HS [facility] Stop: 08/17/23 02:59 Last Admin: 07/18/23 04:05 Dose: Not Given Documented By: CAIO Fluoxetine HCl (Fluoxetine Hcl 20 Mg Cap) 20 mg PO TID [facility] Stop: 08/17/23 08:59 Last Admin: 07/18/23 13:15 Dose: 20 mg Documented By: Admin: 07/18/23 07:23 Dose: 20 mg Documented By: RUSSELL Folic Acid ([facility] Acid 1 Mg Tab) [facility] Stop: 08/17/23 08:59 Last Admin: 07/18/23 07:24 Dose: 1 mg Documented By: RUSSELL Lorazepam 1 mg/ Syringe 1 mls @ 2 mls/min IV UD PRN; Protocol PRN Reason: EtOH Withdrawal AWSS Score 6,7 Stop: 08/17/23 01:20 Last Admin: 07/18/23 11:54 Dose: 2 mls/min Documented By: Admin: 07/18/23 05:19 Dose: 2 mls/min Documented By: CAIO Lorazepam 2 mg/ Syringe 2 mls @ 2 mls/min IV UD PRN; Protocol PRN Reason: EtOH Withdrawal AWSS Score 8,9 Stop: 08/17/23 01:20 Last Admin: 07/18/23 15:20 Dose: 2 mls/min Documented By: MARELY Thiamine HCl 200 mg/ Sodium (Chloride) 52 mls @ 210 mls/hr IV TID [facility] Stop: 08/17/23 13:59 Last Infusion: 07/18/23 14:55 Dose: Infused Documented By: Admin: 07/18/23 14:24 Dose: 210 mls/hr Documented By: MARELY Ondansetron HCl (Ondansetron Inj 2 Mg/Ml 2 Ml Vial) 4 mg IV Q6H PRN PRN Reason: Nausea And Vomiting Stop: 08/17/23 00:42 Last Admin: 07/18/23 00:58 Dose: 4 mg Documented By: NIESHA Pantoprazole Sodium (Pantoprazole 40 Mg Tab) 40 mg PO BID [facility] Stop: 08/17/23 12:59 Last Admin: 07/18/23 13:15 Dose: 40 mg Documented By: MARELY Coding Level of Care Code 09484 IN/OBS CONSULT LVL 4,60M Diagnoses Alcohol use disorder, severe, dependence F10.20 Anxiety and depression F41.9; F32.A Alcohol-induced anxiety disorder F10.980
[2023-07-18] MEDS ORDERED: DOXEPIN HCL 50 MG CAPSULE PO SCH (21:00)
[2023-07-18] MEDS: diazePAM 2 MG TABLET PO PRN (22:08)
[2023-07-18] MEDS: METOCLOPRAMIDE HCL INJ 5 MG/ML 2 ML VIAL IV STA (23:20)
[2023-07-19] MEDS: chlordiazePOXIDE HCl 25 MG CAP PO SCH (02:28)
[2023-07-19 06:31] LABS: Basophils # (auto) 0.07 K/uL (0.00-0.20); Basophils % (auto) 1.5 %; Eosinophils # (auto) 0.13 K/uL (0.00-0.50); Eosinophils % (auto) 2.8 %; Hematocrit (blood only) 33.9 % (37.0-47.0); Hemoglobin 11.6 g/dl (12.0-16.0); Immature Granulocytes # (auto) 0.01 K/uL (0.01-0.20); Immature Granulocytes % (auto) 0.2 %; Lymphocytes # (auto) 1.71 K/uL (1.20-3.40); Lymphocytes % (auto) 37.1 %; Mean Corpuscular Hgb Conc 34.2 g/dL (32.0-36.0); Mean Corpuscular Volume 93.6 fL (80.0-100.0); Mean Platelet Volume 9.9 fL (9.4-12.4); Monocytes # (auto) 0.45 K/uL (0.11-0.59); Monocytes % (auto) 9.8 %; Neutrophils # (auto) 2.24 K/uL (1.40-6.50); Neutrophils % (auto) 48.6 %; Platelet Count 250 K/uL (130-400); RDW Coefficient of Variation 14.8 % (11.5-14.5); RDW Standard Deviation 51.5 fL (36.4-46.3); Red Blood Count 3.62 M/uL (4.20-5.40); White Blood Count 4.61 K/ul (4.8-10.8)
[2023-07-19 06:50] LABS: Albumin Level 3.7 gm/dl (3.4-5.0); Bilirubin Direct 0.1 mg/dl (0-0.2); Bilirubin,Total 0.7 mg/dl (0.2-1.0); Calcium 8.4 mg/dl (8.6-10.3); Creatinine Clr Calc Pharmacy 134.8 ml/min; Est GFR (African American) 132.1 ml/min; Magnesium 1.9 mg/dl (1.7-2.4); Potassium 3.8 mmol/L (3.5-5.1); Total Protein 6.4 gm/dl (6.0-8.3)
--- NOTE | 2023-07-19 07:14 | Electrocardiogram Report ---
Test Reason : Blood Pressure : / mmHG Vent. Rate : 101 BPM Atrial Rate : 101 BPM P-R Int : 122 ms QRS Dur : 088 ms QT Int : 400 ms P-R-T Axes : 048 069 064 degrees QTc Int : 518 ms Sinus tachycardia Otherwise normal ECG When compared with ECG of 07-MAY-2023 13:10, QT has lengthened Confirmed by Talat Davidson ([id number]) on 07/19/2023 7:13:45 AM Referred By: REFERRED SELF Confirmed By:Talat Davidson
[2023-07-19] MEDS: FLUoxetine HCL 20 MG CAP PO SCH (07:42)
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
--- NOTE | 2023-07-19 10:17 | Gastrointestinal Consultation ---
Date of Consultation July 19, 2023 Assessment & Plan (1) Vomiting: She has a lot of reasons to be vomiting with alcohol abuse being number one. She could well be vomiting from alcoholic gastritis or even from withdrawal from alcohol. She admittedly takes a lot of NSAIDs so she could have NSAID induced gastritis or ulcer disease. She may have had some bleeding in the past but by her history to me she is not actively bleeding and her hemoglobin is stable. For now I would just treat for ulcer disease as you are doing and observe. Okay with me to advance diet as tolerated. History of Present Illness Reason for Consultation: vomiting Attending Physician: Danny Gomez MD History of Present Illness 38 year old female admitted for detox who has been drinking one fifth per day or so. I am asked to see her for vomiting. She says she usually vomits when she withdraws from alcohol. She admittedly takes 3 aleve per day for headaches and has been recently. She tells me her stools were black yesterday but were normal today (told Mandy Milton they were dark today). She denies abdominal pain or heartburn. She says she feels fine now. Her h/h are stable. Allergies Allergy/AdvReac Type Severity Reaction Status Date / Time doxycycline Allergy Severe Anaphylaxis Verified 07/17/23 14:53 Home Medications Medication Instructions Recorded Confirmed Type buspirone 10 mg tablet 10 mg PO TID 30 days #90 tabs 06/06/23 07/17/23 Rx cholecalciferol (vitamin D3) 25 25 mcg PO DAILY 06/06/23 07/17/23 History mcg (1,000 unit) capsule (Vitamin D3) fluoxetine 20 mg capsule (Prozac) 20 mg PO TID 30 days #90 caps 06/06/23 07/17/23 Rx hydroxyzine HCl 25 mg tablet 25 mg PO DAILY PRN anxiety #30 tabs 06/06/23 07/17/23 Rx ondansetron 4 mg disintegrating 4 mg PO Q8H PRN nausea and 06/26/23 07/17/23 Rx tablet vomiting #30 tabs albuterol sulfate 90 mcg/actuation 2 puff inhalation QID PRN 07/10/23 07/17/23 Rx aerosol inhaler (ProAir HFA) shortness of breath #8.5 grams chlordiazepoxide HCl 25 mg capsule See Rx Instructions .Route 07/17/23 Rx .COMPLEX PRN alcohol withdrawal #30 caps epinephrine 0.3 mg/0.3 mL 0.3 mg (0.3 mL) IM Q4H PRN 07/17/23 07/17/23 Rx injection, auto-injector (EpiPen anaphylaxis #2 ea 2-[place]) doxepin 100 mg capsule 100 mg PO HS 07/18/23 07/18/23 History doxepin 100 mg capsule mg 07/18/23 History Patient History Medical History Alcohol abuse Anxiety and depression Surgical History History of hysterectomy Family History Mother Alcohol abuse Anxiety Depression Father Alcohol abuse Anxiety Depression Brother Alcohol abuse Anxiety Depression Grandmother Breast cancer Grandfather Colorectal cancer Social History Smoking Status: Never smoker Tobacco Type: Cigarettes Hx Alcohol Use: Yes Alcohol type: beer and hard liquor Hx Substance Use: No Preferred Language: Nigerien Communication Ability: Effective Bulb Grower Required: No Beliefs That Will Affect Care: None Current Living Situation: Significant Other Feels Safe at Home: Yes Review of Systems Review of Systems: All systems reviewed & are unremarkable except as noted in HPI & below Physical Exam Constitutional: WD/WN, vitals as above Neck: trachea midline, no thyromegaly Respiratory: normal respiratory effort, lungs clear to auscultation Cardiovascular: RRR, no murmur, no edema Gastrointestinal (Abdomen): normal bowel sounds, soft, nontender, no hepatosplenomegaly Musculoskeletal: Extremities: extremities normal to inspection Results & Data Vital Signs (Past 12 Hours) Vital Signs Temp Pulse Pulse Resp BP Pulse Ox O2 Del Method 07/19/23 08:04 36.6 C 79 18 129/88 96 Room Air 07/19/23 07:00 77 07/19/23 05:54 36.5 C 92 H 18 127/89 97 Room Air 07/19/23 05:05 36.8 C 82 19 133/85 98 Room Air 07/19/23 03:12 36.3 C L 80 21 139/88 98 Room Air 07/19/23 01:08 36.4 C L 73 18 110/75 97 Room Air 07/19/23 00:00 78 07/19/23 00:00 07/18/23 22:57 36.5 C 79 18 116/75 97 Room Air O2 Del Method 07/19/23 08:04 07/19/23 07:00 07/19/23 05:54 07/19/23 05:05 07/19/23 03:12 07/19/23 01:08 07/19/23 00:00 07/19/23 00:00 Room Air 07/18/23 22:57 Laboratory Results 07/19/23 Range/Units 05:26 WBC 4.61 L (4.8-10.8) K/ul RBC 3.62 L (4.20-5.40) M/uL Hgb 11.6 L (12.0-16.0) g/dl Hct 33.9 L (37.0-47.0) % MCV 93.6 (80.0-100.0) fL MCH 32.0 (25.0-34.0) pg MCHC 34.2 (32.0-36.0) g/dL RDW Std Deviation 51.5 H (36.4-46.3) fL RDW Coeff of Cuco 14.8 H (11.5-14.5) % Plt Count 250 (130-400) K/uL MPV 9.9 (9.4-12.4) fL Immature Gran % (Auto) 0.2 % Neut % (Auto) 48.6 % Lymph % (Auto) 37.1 % [place] % (Auto) 9.8 % Eos % (Auto) 2.8 % Baso % (Auto) 1.5 % Neut # (Auto) 2.24 (1.40-6.50) K/uL Lymph # (Auto) 1.71 (1.20-3.40) K/uL [place] # (Auto) 0.45 (0.11-0.59) K/uL Eos # (Auto) 0.13 (0.00-0.50) K/uL Baso # (Auto) 0.07 (0.00-0.20) K/uL Immature Gran # (Auto) 0.01 (0.01-0.20) K/uL Sodium 135 L (136-145) mmol/L Potassium 3.8 (3.5-5.1) mmol/L Chloride 105 (98-107) mmol/L Carbon Dioxide 25 (21-32) mmol/L Anion Gap 5 (3-11) BUN 15 (6-23) mg/dl Creatinine 0.60 (0.6-1.2) mg/dl Est Cr Clr Drug Dosing 134.8 ml/min Est GFR ( Amer) 132.1 ml/min Est GFR (Non-Af Amer) 114.0 ml/min BUN/Creatinine Ratio 25.0 H (10-20) Glucose 81 (70-99(Fasting)) mg/dl Calcium 8.4 L (8.6-10.3) mg/dl Magnesium 1.9 (1.7-2.4) mg/dl Total Bilirubin 0.7 (0.2-1.0) mg/dl Direct Bilirubin 0.1 (0-0.2) mg/dl AST 88 H (13-39) U/L ALT 50 (7-52) U/L Alkaline Phosphatase 120 H (34-104) U/L Total Protein 6.4 (6.0-8.3) gm/dl Albumin 3.7 (3.4-5.0) gm/dl Lipase 57 (11-82) U/L
[2023-07-19] MEDS: SUCRALFATE 1 GM/10 ML UDC PO SCH (10:45)
[2023-07-19] MEDS: diphenhydrAMINE 50 MG/ML VIAL IV STA (10:45)
[2023-07-19] MEDS: LACTATED RINGER'S 1,000 ML IV SCH (11:28)
--- NOTE | 2023-07-19 13:01 | Communication Note ---
Date of Service: July 19, 2023 Of note, patient did get rx for doxycycline recently for pulmonary coverage and could have exacerbated GI symptoms/gastritis if possibly having doxycycline/pill esophagitis. Did present to PCP following w/ possible allergic reaction which resolved w/ benadryl and was provided epi pen and sent to ER at that time. Again, GI consulted and patient continued on PPI but made IV BID and added carafate in meantime, VSS and hgb stable. Advance diet as tolerated and requested by patient given no further reports of emesis and taking liquids without issue.
--- NOTE | 2023-07-19 14:16 | XRay Report ---
XR chest 1V portable CLINICAL HISTORY: n/v TECHNIQUE: Single frontal radiograph of the chest was obtained. Comparison: Comparison is made to chest radiograph 05/07/2023 FINDINGS: No lines and tubes are seen. The cardiomediastinal silhouette is normal. The lungs are clear. No evid ence of pleural effusion or pneumothorax. IMPRESSION: No acute chest disease. ACT 112: Negative or not required by law. Electronically signed by: Kevan Russell M.D. 07/19/2023 2:15 PM
--- NOTE | 2023-07-19 14:17 | XRay Report ---
XR KUB/Abdomen 1 view CLINICAL HISTORY: n/v TECHNIQUE: 1 view of the abdomen was obtained. Comparison: None available at the time of this dictation. FINDINGS: Lung bases are unremarkable. The osseous structures are grossly unremarkable. The bowel gas pattern i s nonobstructive. A moderate amount of stool is noted within the large bowel. IMPRESSION: Nonobstructive bowel gas pattern. ACT 112: Negative or not required by law. Electronically signed by: Kevan Russell M.D. 07/19/2023 2:15 PM
[2023-07-19] MEDS: PANTOprazole 40 MG in SYRINGE 0 ML IV SCH (20:34)
[2023-07-20] MEDS: chlordiazePOXIDE HCl 25 MG CAP PO SCH (02:53)
[2023-07-20] MEDS: CYANOCOBALAMIN (B-12) 500 MCG TABLET PO SCH (07:26)
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
--- NOTE | 2023-07-20 09:07 | Gastroenterology Progress Note ---
Date of Service July 20, 2023 Assessment & Plan (1) Vomiting: Plan: No further vomiting. Stool normal color per patient. Nothing to add at this time. Will sign off. Please reconsult prn Admission and Anticipated Discharge Date Admission Date: July 18, 2023 Subjective Doing well from GI standpoint. No vomiting. Said she had a solid brown stool this morning Physical Exam Physical Exam: She looks well Constitutional: WD/WN, vitals as above Results & Data Vital Signs (Past 12 Hours) Vital Signs Temp Pulse Pulse Resp BP Pulse Ox O2 Del Method 07/20/23 07:43 82 07/20/23 07:20 36.3 C L 84 18 126/89 98 Room Air 07/20/23 05:18 37.2 C 88 20 107/74 97 Room Air 07/20/23 02:48 36.4 C L 72 22 115/76 98 Room Air 07/20/23 00:00 85 07/19/23 21:49 36.6 C 85 19 114/76 97 Room Air Laboratory Results 07/19/23 Range/Units 05:26 Lipase 57 (11-82) U/L
[2023-07-20 09:24] LABS: Basophils # (auto) 0.05 K/uL (0.00-0.20); Basophils % (auto) 0.9 %; Eosinophils # (auto) 0.14 K/uL (0.00-0.50); Eosinophils % (auto) 2.6 %; Hematocrit (blood only) 33.4 % (37.0-47.0); Hemoglobin 11.3 g/dl (12.0-16.0); Immature Granulocytes # (auto) 0.02 K/uL (0.01-0.20); Immature Granulocytes % (auto) 0.4 %; Lymphocytes # (auto) 1.51 K/uL (1.20-3.40); Lymphocytes % (auto) 28.2 %; Mean Corpuscular Hemoglobin 31.7 pg (25.0-34.0); Mean Corpuscular Hgb Conc 33.8 g/dL (32.0-36.0); Mean Corpuscular Volume 93.8 fL (80.0-100.0); Mean Platelet Volume 9.7 fL (9.4-12.4); Monocytes # (auto) 0.44 K/uL (0.11-0.59); Monocytes % (auto) 8.2 %; Neutrophils # (auto) 3.19 K/uL (1.40-6.50); Neutrophils % (auto) 59.7 %; Platelet Count 188 K/uL (130-400); RDW Coefficient of Variation 14.6 % (11.5-14.5); RDW Standard Deviation 51.2 fL (36.4-46.3); Red Blood Count 3.56 M/uL (4.20-5.40); White Blood Count 5.35 K/ul (4.8-10.8)
[2023-07-20 09:39] LABS: Albumin Level 3.7 gm/dl (3.4-5.0); BUN Creatinine Ratio 30.2 (10-20); Bilirubin Direct 0.1 mg/dl (0-0.2); Bilirubin,Total 0.4 mg/dl (0.2-1.0); Creatinine Clr Calc Pharmacy 152.6 ml/min; Est GFR (African American) 137.7 ml/min; Est GFR (Non-African American) 118.8 ml/min; Magnesium 1.5 mg/dl (1.7-2.4); Total Protein 6.3 gm/dl (6.0-8.3)
[2023-07-20] MEDS: chlordiazePOXIDE HCl 25 MG CAP PO ONE (09:42)
[2023-07-20] MEDS: MAGNESIUM SULFATE / D5W 1 GM/100 ML BAG IV SCH (12:02)
[2023-07-20] MEDS ORDERED: PHENobarbital sodium 65 MG/ML VIAL IM STA (12:25)
[2023-07-20] MEDS ORDERED: PHENobarbital PO Alcohol Withdrawal PO STA (12:27)
[2023-07-20] MEDS ORDERED: chlordiazePOXIDE HCl 25 MG CAP PO SCH (13:00)
[2023-07-20] MEDS ORDERED: PHENobarbital sodium 130 MG/ML VIAL IV STA (13:27)
[2023-07-20] MEDS: PHENobarbital sodium 130 MG/ML VIAL IM STA (13:57)
[2023-07-20] MEDS: LACTATED RINGER'S 1,000 ML IV SCH (13:58)
[2023-07-20] MEDS: PHENobarbital sodium 65 MG/ML VIAL IM SCH (16:52)
[2023-07-21 05:41] LABS: Hematocrit (blood only) 33.1 % (37.0-47.0); Mean Corpuscular Hemoglobin 31.7 pg (25.0-34.0); Mean Corpuscular Hgb Conc 33.2 g/dL (32.0-36.0); Mean Corpuscular Volume 95.4 fL (80.0-100.0); Mean Platelet Volume 9.8 fL (9.4-12.4); Platelet Count 187 K/uL (130-400); RDW Coefficient of Variation 14.8 % (11.5-14.5); RDW Standard Deviation 51.1 fL (36.4-46.3); Red Blood Count 3.47 M/uL (4.20-5.40); White Blood Count 6.11 K/ul (4.8-10.8)
[2023-07-21 05:53] LABS: Albumin Level 3.5 gm/dl (3.4-5.0); BUN Creatinine Ratio 28.3 (10-20); Bilirubin Direct 0.1 mg/dl (0-0.2); Bilirubin,Total 0.3 mg/dl (0.2-1.0); Calcium 8.5 mg/dl (8.6-10.3); Creatinine Clr Calc Pharmacy 146.8 ml/min; Est GFR (African American) 132.1 ml/min; Magnesium 1.6 mg/dl (1.7-2.4); Potassium 3.9 mmol/L (3.5-5.1); Total Protein 6.1 gm/dl (6.0-8.3)
[2023-07-21] MEDS: PHENobarbitaL 30 MG TAB PO SCH (07:58)
--- NOTE | 2023-07-21 08:54 | Ultrasound Report ---
US liver CLINICAL HISTORY: elevated lfts TECHNIQUE: Multiple real-time sonographic images of the right upper quadrant were obtained. Comparison: Comparison is made to abdomen radiograph 07/19/2023 FINDINGS: The liver is diffusely echogenic in appearance with poor ultrasound penetration, with normal contour, which is consistent with fatty infiltration. No focal mass lesions are seen. No intrahepatic duct al dilatation is seen. No gallstones or sludge are identified within the gallbladder. The gallbladde r wall is not thickened. There is no pericholecystic fluid present. A sonographic Spears's sign was n ot elicited by the telecom sales consultant. The common duct measures 0.5 cm in diameter at the level of the hep atic artery. The visualized portions of the pancreas appear normal. The right kidney shows normal echogenicity, cortical thickness and renal contour. The right kidney sh ows no evidence of hydronephrosis or mass. No ascites or free fluid is seen in Shah's pouch. IMPRESSION: Hepatic steatosis. No acute abnormalities are seen in particular no evidence of acute cholecystitis. ACT 112: Negative or not required by law. Electronically signed by: Kevan Russell M.D. 07/21/2023 8:53 AM
[2023-07-21] MEDS: MAGNESIUM SULFATE / D5W 1 GM/100 ML BAG IV SCH (10:00)
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
[2023-07-21] MEDS: hydrOXYzine HCl 25 MG TAB PO PRN (14:00)
[2023-07-21] MEDS: PANTOprazole 40 MG TAB PO SCH (20:58)
[2023-07-21] MEDS: PHENobarbital sodium 65 MG/ML VIAL IM PRN (22:25)
[2023-07-22 06:55] LABS: Hematocrit (blood only) 34.4 % (37.0-47.0); Hemoglobin 11.6 g/dl (12.0-16.0); Mean Corpuscular Hemoglobin 32.1 pg (25.0-34.0); Mean Corpuscular Hgb Conc 33.7 g/dL (32.0-36.0); Mean Corpuscular Volume 95.3 fL (80.0-100.0); Mean Platelet Volume 9.8 fL (9.4-12.4); Platelet Count 193 K/uL (130-400); RDW Standard Deviation 52.1 fL (36.4-46.3); Red Blood Count 3.61 M/uL (4.20-5.40); White Blood Count 5.55 K/ul (4.8-10.8)
[2023-07-22 07:01] LABS: Albumin Level 3.8 gm/dl (3.4-5.0); BUN Creatinine Ratio 24.6 (10-20); Bilirubin,Total 0.3 mg/dl (0.2-1.0); Calcium 9.1 mg/dl (8.6-10.3); Creatinine Clr Calc Pharmacy 156.8 ml/min; Est GFR (African American) 134.4 ml/min; Magnesium 1.7 mg/dl (1.7-2.4); Potassium 4.1 mmol/L (3.5-5.1); Total Protein 6.5 gm/dl (6.0-8.3)
[2023-07-22] MEDS: PHENobarbitaL 30 MG TAB PO SCH ×2 (08:07→13:42)
[2023-07-22] MEDS: LORazepam 1 MG TAB PO STA (13:42)
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
[2023-07-22] MEDS: PHENobarbitaL 30 MG TAB PO STA (17:46)
[2023-07-23] MEDS ORDERED: PHENobarbitaL 30 MG TAB PO SCH (19:00)
== END 2023-07-22 18:42 | disposition home or self-care (01) | DRG 897 ==
LOC: ED 16:37 → EDINP 07-18 00:11 → SUATTDRO 07-18 00:11 → 4W 07-18 01:21